=== PATIENT | male | born 1940 | race Caucasian/White ===

== ENCOUNTER 2017-01-21 22:24 | Emergency (ER) | payer MEDICARE ==
[2017-01-21] MEDS ORDERED: Acetaminophen/oxyCODONE 325-10 MG Tab PO ONE (23:43)
--- NOTE | 2017-01-21 23:50 | EDM.PDOC ---
ED HPI GENERAL MEDICAL PROBLEM - General Chief Complaint: Upper Extremity Injury/Pain Stated Complaint: FELL AND HURT LEFT SHOULDER Time Seen by Provider: 01/21/17 23:00 - History of Present Illness INITIAL COMMENTS - FREE TEXT/NARRATIVE: He fell about eight feet against his left shoulder. Now he notes pain He denies head injury or LOC left shoulder /clavicle Pain Score (Numeric/FACES): 8 - Related Data Allergies Allergy/AdvReac Type Severity Reaction Status Date / Time No Known Allergies Allergy Verified 01/21/17 22:47 Home Meds: Home Meds . [No Known Home Meds] 01/21/17 [History] Past Medical History Cardiovascular History: Reports: Other (See Below) (prior open heart surgery 20 years ago.) - Infectious Disease History Infectious Disease History: Reports: None - Past Surgical History Head Surgeries/Procedures: Reports: None Social & Family History - Family History Family Medical History: Noncontributory - Tobacco Use Smoking Status *Q: Current Status Unknown - Caffeine Use Caffeine Use: Reports: None - Recreational Drug Use Recreational Drug Use: No Review of Systems - Review of Systems Review Of Systems: See Below (he denies other injury) ED EXAM, GENERAL - Physical Exam Exam: See Below Free Text/Narrative:: alert normal mentation normal gait head atraumatic neck supple left shoulder: diffuse tenderness; deformity at acromioclavicular joint; Xray shows grade 2 AC joint separation Course - Vital Signs Last Recorded V/S: Last Vital Signs Temp 97.5 F 01/21/17 22:45 Pulse 63 01/21/17 22:45 Resp 18 01/21/17 22:45 BP 195/94 H 01/21/17 22:45 Pulse Ox 95 01/21/17 22:45 - Orders/Labs/Meds Orders: Active Orders 24 hr Category Date Time Status Clavicle Lt [CR] Stat Exams 01/21/17 22:48 Taken Shoulder Comp Lt [CR] Stat Exams 01/21/17 22:41 Taken Meds: Medications Discontinued Medications Generic Name Dose Route Start Last Admin Trade Name Freq PRN Reason Stop Dose Admin Oxycodone/Acetaminophen 1 tab 01/21/17 23:43 Percocet 325-10 Mg PO 01/21/17 23:44 ONETIME ONE Departure - Departure Time of Disposition: 23:47 Disposition: Home, Self-Care 01 Condition: Fair Clinical Impression: Grade 3 separation of left shoulder - Discharge Information Referrals: PCP,None [Primary Care Provider] - Forms: ED Department Discharge Additional Instructions: percocet is for short term use as it may be habit forming, sedating and constipating do not use tylenol with percocet keep arm in a sling follow up with orthopedics within a week. your blood pressure was elevated today; a recheck of your blood pressure is recommended within two weeks. Chidi Olson MD - My Orders Last 24 Hours: My Active Orders 01/21/17 22:41 Shoulder Comp Lt [CR] Stat 01/21/17 22:48 Clavicle Lt [CR] Stat - Assessment/Plan Last 24 Hours: My Active Orders 01/21/17 22:41 Shoulder Comp Lt [CR] Stat 01/21/17 22:48 Clavicle Lt [CR] Stat
[2017-01-22 00:07] VITALS: BP 190/92
--- NOTE | 2017-01-22 11:14 | CR ---
EXAM DATE: 01/21/17 PATIENT'S AGE: 76 Patient: RAJI MUIR Facility: [place], [place] Site . Site : 1940 Study: XRay Shoulder clavicle [id number]/23/2017 11:04:16 PM Ordering Physician: Wesley Murillo Final Report: INDICATION: Fall TECHNIQUE: Two views left clavicle COMPARISON: None FINDINGS: Bones: Alignment is normal. No fractures or bone lesions. Joint spaces: Elevation distal left clavicle consistent with grade 3 AC joint separation. Soft tissues: Unremarkable. IMPRESSION: Elevation distal left clavicle consistent with grade 3 AC joint separation. Dictated by Leoncio Low MD @ 01/21/2017 11:17:25 PM Dictated by: Leoncio Lwo MD @ 01/21/2017 23:17:30 (Electronic Signature) Report Signed by Proxy. TULIO
--- NOTE | 2017-01-22 11:15 | CR ---
EXAM DATE: 01/21/17 PATIENT'S AGE: 76 Patient: RAJI MUIR Facility: [place], [place] Site . Site : 1940 Study: XRay Shoulder [id number]/23/2017 11:04:32 PM Ordering Physician: Doctor Mcgarry Final Report: INDICATION: Fall. TECHNIQUE: Two views left shoulder COMPARISON: None FINDINGS: Bones: Alignment is normal. No fractures or bone lesions. Joint spaces: Elevation of the distal left clavicle consistent with a grade 3 AC joint separation.2 Soft tissues: Unremarkable. IMPRESSION: Elevation of the distal left clavicle consistent with a grade 3 AC joint separation. Dictated by Leoncio Low MD @ 01/21/2017 11:15:03 PM Dictated by: Leoncio Low MD @ 01/21/2017 23:15:10 (Electronic Signature) Report Signed by Proxy. TULIO
== END 2017-01-22 00:05 | disposition home or self-care (01) ==
LOC: MW.ED 22:24
DX: S43.102A Unspecified dislocation of left acromioclavicular joint, initial encounter (principal); W17.89XA Other fall from one level to another, initial encounter
CPT/HCPCS: 73000; 73030; 99283; A9270; 99282